=== PATIENT | female | born 1990 | race African-American/Black ===

== ENCOUNTER 2019-12-11 21:45 | Emergency (ER) | payer SELFPAY ==
[2019-12-11 21:51] VITALS: BP 123/79; PULSE 90; TEMP 98.5; BMI 22.6
[2019-12-11] MEDS ORDERED: SODIUM CHLORIDE 1,000 ML IV STA (23:54)
--- NOTE | 2019-12-12 00:01 | PDOC ---
History of Present Illness - General Chief Complaint: Vaginal Bleeding Stated Complaint: ABD PAIN Time Seen by Provider: 12/11/19 23:42 History Source: Patient Exam Limitations: No Limitations - History of Present Illness Initial Comments: 12/11/19 23:56 Patient is a 29-year-old female who presents to the ED with complaint of right lower abdominal pain, vaginal bleeding and a positive test. The patient states she has had vaginal spotting for the last 7 days. She took a test last night and it was positive. She states the spotting is dark brown and different from her normal period. She is not saturating any pads. She has had lower abdominal cramping primarily on the right side as well. She states her LMP was November 07, 2019. She is with 1 previous elective termination. She has a history of HSV-2 and states she noticed a lesion in her vagina a few days ago and started taking the pills that she was previously prescribed. Past History - Past Medical History Allergies/Adverse Reactions: Allergies Allergy/AdvReac Type Severity Reaction Status Date / Time No Known Allergies Allergy Verified 12/11/19 21:48 Home Medications: Ambulatory Orders No Home Medications 0 dose .ROUTE UTDICT 09/16/12 - Psycho Social/Smoking Cessation Hx Smoking Status: No Smoking History: Never smoked Number of Cigarettes Smoked Daily: 0 Review of Systems - Review of Systems Comments:: 12/11/19 23:57 - Review of Systems Able to Perform ROS?: Yes Constitutional: No: Fever, Chills, Loss of Appetite, Night Sweats, Weakness HEENTM: No: Eye Pain, Vision changes, Ear Pain, Throat Pain, Throat Swelling, Mouth Pain, Difficulty Swallowing Respiratory: No: Cough, Shortness of Breath, Wheezing, Sputum Production Cardiac (ROS): No: Chest Pain, Chest Tightness, Palpitations, Irregular Heart Beat, Edema ABD/GI: No: Nausea, Vomiting, Abdominal Pain, Diarrhea; + lower abdominal cramping : No Dysuria, No Hematuria, No Frequency, No Urgency, + vaginal spotting, recent + test, + vaginal lesion Musculoskeletal: No: Muscle Pain, Back Pain, Joint Pain, Muscle Weakness, Neck Pain Integumentary: No: Lesions, Rash Neurological: No: Headache, Numbness, Tingling, Weakness, Speech Difficulties *Physical Exam - Vital Signs Last Vital Signs Temp Pulse Resp BP Pulse Ox 98.5 F 90 16 123/79 100 12/11/19 21:49 12/11/19 21:49 12/11/19 21:49 12/11/19 21:49 12/11/19 21:49 - Physical Exam 12/11/19 23:58 - Physical Exam General Appearance: Nourished, Appropriately Dressed, No Distress Neck: Supple, No Lymphadenopathy (R), No Lymphadenopathy (L), No Rigidity, No Decreased range of motion Respiratory/Chest: Lungs Clear, Normal Breath Sounds. No Respiratory Distress, No Accessory Muscle Use Cardiovascular: Regular Rhythm, Regular Rate, S1, S2 Gastrointestinal/Abdominal: Normal Bowel Sounds, Soft. Non-tender, No Guarding , No Rebound, No Rigidity CARBURETOR EXPERT exam: scant dark brown vaginal discharge in the vault, os closed, no CMT, + diffuse tenderness on bimanual exam, No masses appreciated, small ulcerated lesion in the distal aspect of the labia major with some tenderness to palpation , no vesicle appreciated. This lesion is consistent with HSV 2 Musculoskeletal: Normal Inspection. No Decreased Range of Motion Extremity: Normal Capillary Refill, Normal Inspection Integumentary: Normal Color, Dry. No Rash Neurologic: process automation engineer II-XII NML intact, Fully Oriented, Alert, Normal Mood/Affect, Normal Response ED Treatment Course - LABORATORY CBC & Chemistry Diagram: 12/12/19 00:00 12/12/19 00:00 - ADDITIONAL ORDERS Additional order review: 12/12/19 01:48 Laboratory Tests 12/12/19 12/12/19 12/12/19 00:00 00:00 00:00 Beta HCG, Quant 127.0 Urine Color Yellow Urine Appearance Clear Urine pH 5.0 Ur Specific [place] 1.028 Urine Protein Negative Urine Glucose (UA) Negative Urine Ketones Trace H Urine Blood Negative Urine Nitrite Negative Urine Bilirubin Negative Urine Urobilinogen 0.2 Ur Leukocyte Esterase Negative Urine HCG, Qual Positive - RADIOLOGY Radiology Studies Ordered: Category Date Time Status TRANSVAGINAL US PREG [US] Stat Ultrasound 12/11/19 23:55 Ordered Medical Decision Making - Medical Decision Making 12/12/19 00:01 Patient is a 29-year-old female with vaginal bleeding and a positive exam at home. -Will send labs for further evaluation -TVUS -IV -Fluids -Reassess 12/12/19 01:48 Patient's ultrasound is read as a small questionable gestational sac with no adnexal masses appreciated. The patient's beta hCG is only 127. Secondary to a low hCG and questionable gestational sac we have suggested that the patient return to the ED in 2 days for a repeat beta-hCG only. She states she will try to follow-up with her TOMATO GRADER within those 2 days as opposed to coming to the ED. She does have an initial obstetrics evaluation with Dr. Johnnie Kuo of [facility] in mid-January. She states that was the earliest appointment available. The patient understands and states that if she is unable to follow- up with Dr. Kuo will return to the ED for the blood work. Discharge - Discharge Information Problems reviewed: Yes Clinical Impression/Diagnosis: Vaginal bleeding in patient after first trimester Condition: Stable - Follow up/Referral - Patient Discharge Instructions Patient Printed Discharge Instructions: DI for Vaginal Bleeding During Additional Instructions: Follow-up with your test bore helper within 2 days for repeat evaluation. We do suggest that you return to the emergency department in 2 days to have a repeat quantitative beta-hCG. Trending your hCG will help us determine whether or not the is growing appropriately. You should return to the ED on Monday or Tuesday 12/19 for a repeat blood work. You should call your test bore helper and see if you can get seen prior to . Return to the emergency department for heavy vaginal bleeding, worsening abdominal pain, profuse vomiting or any other worsening symptoms. - Post Discharge Activity Work/Back to School Note: Back to Work
[2019-12-12 00:41] LABS: URINE APPEARANCE CLEAR; URINE BILIRUBIN NEGATIVE (NEGATIVE); URINE COLOR YELLOW; URINE GLUCOSE (UA) NEGATIVE (NEGATIVE); URINE KETONE TRACE (NEGATIVE); URINE LEUK ESTERASE NEGATIVE (NEGATIVE); URINE NITRITE NEGATIVE (NEGATIVE); URINE PROTEIN NEGATIVE (NEGATIVE); URINE UROBILINOGEN 0.2 mg/dL (0.2-1.0)
[2019-12-12 00:45] LABS: BASO % 0.8 % (0-2.0); EOS % 1.1 % (0-4.5); HEMATOCRIT 34.8 % (32.4-45.2); HEMOGLOBIN 11.1 GM/dL (10.7-15.3); MCH 27.8 pg (25.7-33.7); MEAN PLT VOLUME 9.1 fl (7.5-11.1); MONO % 7.4 % (3.8-10.2); NEUT % 55.7 % (42.8-82.8); PLATELET COUNT 219 K/MM3 (134-434); RDW 15.9 % (11.6-15.6); WHITE BLOOD COUNT 7.6 K/mm3 (4.0-10.0)
[2019-12-12 01:06] LABS: ALBUMIN 3.9 g/dl (3.4-5.0); BILIRUBIN,TOTAL 0.4 mg/dL (0.2-1); CREATININE 0.8 mg/dL (0.55-1.3); POTASSIUM 3.7 mmol/L (3.5-5.1); TOT PROT 7.6 g/dl (6.4-8.2)
== END 2019-12-12 01:58 | disposition home or self-care (01) ==
LOC: JER 21:45
PROC: 3E0337Z Introduction of Electrolytic and Water Balance Substance into Peripheral Vein, Percutaneous Approach (ICD-10-PCS; principal; 2019-12-11)
DX: O26.891 Other specified pregnancy related conditions, first trimester (principal); O20.8 Other hemorrhage in early pregnancy; O98.311 Other infections with a predominantly sexual mode of transmission complicating pregnancy, first trimester; A60.04 Herpesviral vulvovaginitis; Z3A.00 Weeks of gestation of pregnancy not specified
CPT/HCPCS: 36415; 76817-TC; 80053; 81003; 84702; 84703; 85025; 86850; 86900; 86901; 87086; 99282-25

== ENCOUNTER 2019-12-14 22:06 | Emergency (ER) | payer OTHER ==
[2019-12-14 22:12] VITALS: BP 156/66; PULSE 85; TEMP 98.3; BMI 22.6
--- NOTE | 2019-12-14 23:28 | PDOC ---
History of Present Illness - General Chief Complaint: Revisit, Lab Variance Stated Complaint: LABS VARIANCE Time Seen by Provider: 12/14/19 22:16 History Source: Patient Exam Limitations: No Limitations Past History - Past Medical History Allergies/Adverse Reactions: Allergies Allergy/AdvReac Type Severity Reaction Status Date / Time No Known Allergies Allergy Verified 12/11/19 21:48 Home Medications: Ambulatory Orders No Home Medications 0 dose .ROUTE UTDICT 09/16/12 COPD: No - Reproductive History (#): 1 Para: 0 Spontaneous : 0 - Psycho Social/Smoking Cessation Hx Smoking Status: No Smoking History: Never smoked Number of Cigarettes Smoked Daily: 0 *Physical Exam - Vital Signs Last Vital Signs Temp Pulse Resp BP Pulse Ox 98.3 F 85 19 156/66 100 12/14/19 22:08 12/14/19 22:08 12/14/19 22:08 12/14/19 22:08 12/14/19 22:08 - Physical Exam General Appearance: No: Apparent Distress Respiratory/Chest: positive: Lungs Clear, Normal Breath Sounds. negative: Respiratory Distress Cardiovascular: positive: Regular Rhythm, Regular Rate, S1, S2. negative: Murmur Gastrointestinal/Abdominal: positive: Normal Bowel Sounds, Soft. negative: Tender, Distended, Guarding, Rebound Integumentary: positive: Normal Color Neurologic: positive: Alert ED Treatment Course - ADDITIONAL ORDERS Additional order review: Laboratory Results 12/14/19 22:30 Beta HCG, Quant 218.7 Medical Decision Making - Medical Decision Making 29 y/o F with hx of genital herpes, , currently , LNMP 11/07, presents for repeat bhcg. Was seen 2 days ago and found to have bhcg of 127. Patient denies having any more abdominal pain. Still with light vaginal spotting. Denies fever, URI sxs, other complaints TVUS 2 days ago inconclusive for IUP Laboratory Results - last 24 hr 12/14/19 22:30 Beta HCG, Quant 218.7 Bhcg currently 218.7 Levels are rising D/W Dr. Robles - unlikely to see IUP at such a low Bhcg; patient without any abdominal pain; not a high suspicion for ectopic Patient has CHUTE MAN with whom she can follow-up stable for dc 12/14/19 23:23 Discharge - Discharge Information Problems reviewed: Yes Clinical Impression/Diagnosis: Early stage of Condition: Stable Disposition: HOME - Admission No - Additional Discharge Information Prescription Drug Monitoring Program (I-STOP) results: I-STOP not reviewed - Follow up/Referral - Patient Discharge Instructions Patient Printed Discharge Instructions: DI for Abdominal Pain -- Early Additional Instructions: Thank you for choosing [facility]. It was a pleasure taking care of you. Follow-up with your CHUTE MAN for continued monitoring of your Return to the Emergency Department if your symptoms worsen or persist, you have severe abdominal pain, heavy bleeding or other concerning symptoms. - Post Discharge Activity
== END 2019-12-14 23:50 | disposition home or self-care (01) ==
LOC: JER 22:06
DX: O26.891 Other specified pregnancy related conditions, first trimester (principal); Z32.01 Encounter for pregnancy test, result positive; Z3A.01 Less than 8 weeks gestation of pregnancy
CPT/HCPCS: 36415; 84702; 99281-25

== ENCOUNTER 2019-12-21 23:16 | Emergency (ER) | payer OTHER ==
[2019-12-21 23:52] VITALS: BP 116/63; TEMP 97.9; BMI 22.6
--- NOTE | 2019-12-22 | PDOC ---
History of Present Illness - General Chief Complaint: Vaginal Bleeding Stated Complaint: VAGINAL BLEEDING/4WKS PREG. Time Seen by Provider: 12/22/19 00:00 History Source: Patient Past History - Past Medical History Allergies/Adverse Reactions: Allergies Allergy/AdvReac Type Severity Reaction Status Date / Time No Known Allergies Allergy Verified 12/21/19 23:39 Home Medications: Ambulatory Orders No Home Medications 0 dose .ROUTE UTDICT 09/16/12 COPD: No - Reproductive History (#): 1 Para: 0 Spontaneous : 0 - Psycho Social/Smoking Cessation Hx Smoking Status: No Smoking History: Never smoked Have you smoked in the past 12 months: No Number of Cigarettes Smoked Daily: 0 Information on smoking cessation initiated: No Hx Alcohol Use: No Drug/Substance Use Hx: No *Physical Exam - Vital Signs Last Vital Signs Temp Pulse Resp BP Pulse Ox 97.9 F 94 H 20 116/63 100 12/21/19 23:39 12/21/19 23:39 12/21/19 23:39 12/21/19 23:39 12/21/19 23:39
--- NOTE | 2019-12-22 00:54 | PDOC ---
Documentation entered by Denise Rodriguez SCRIBE, acting as scribe for Caitie Del Toro MD. Caitie Del Toro MD: This documentation has been prepared by the Jennifer mendez Adrianna, SCRIBE, under my direction and personally reviewed by me in its entirety. I confirm that the documentation accurately reflects all work, treatment, procedures, and medical decision making performed by me. Attending Attestation - Resident Resident Name: Jose Dias - ED Attending Attestation I have performed the following: I have examined & evaluated the patient, The case was reviewed & discussed with the resident, I agree w/resident's findings & plan, Exceptions are as noted - HPI HPI: The patient is a 29 year old female, with a significant PMH of genital herpes, who presents to the ED for evaluation of vaginal bleeding. Patient reports passing large clots today. She endorses associated suprapubic cramping. Patient was seen at [facility] recently for vaginal spotting, and her TVUS 8 days ago was inconclusive for IUP. Allergies: NKA, NKDA Surgical History: None reported Social History: Denies EtOH, tobacco, or illicit drug use - Physicial Exam PE: GENERAL: Awake, alert, and fully oriented, in no acute distress HEAD: No signs of trauma EYES: PERRLA, EOMI, sclera anicteric, conjunctiva clear ENT: Auricles normal inspection, hearing grossly normal, nares patent, oropharynx clear without exudates. Moist mucosa NECK: Normal ROM, supple, no lymphadenopathy, JVD, or masses LUNGS: Breath sounds equal, clear to auscultation bilaterally. No wheezes, and no crackles HEART: Regular rate and rhythm, normal S1 and S2, no murmurs, rubs or gallops ABDOMEN: Soft, +mild suprapubic tenderness, normoactive bowel sounds. No guarding, no rebound. No masses EXTREMITIES: Normal range of motion, no edema. No clubbing or cyanosis. No cords, erythema, or tenderness NEUROLOGICAL: Cranial nerves II through XII grossly intact. Normal speech, normal gait. Motor and sensation intact SKIN: Warm, dry, normal turgor, no rashes or lesions noted. - Medical Decision Making 12/22/19 00:53 Pt with recent vaginal spotting, inconclusive ultrasound, now presenting with passage of clots and what appeared to be tissue, as well as suprapubic cramping pain. Will check B-HCG and sono.
[2019-12-22 01:06] LABS: BASO % 1.5 % (0-2.0); EOS % 1.8 % (0-4.5); HEMATOCRIT 35.3 % (32.4-45.2); HEMOGLOBIN 11.3 GM/dL (10.7-15.3); LYMPH % 39.6 % (8-40); MCH 27.9 pg (25.7-33.7); MEAN CELL VOLUME 87.1 fl (80-96); MEAN PLT VOLUME 10.7 fl (7.5-11.1); MONO % 9.3 % (3.8-10.2); NEUT % 47.8 % (42.8-82.8); PLATELET COUNT 264 K/MM3 (134-434); RBC 4.05 M/mm3 (3.60-5.2); RDW 16.2 % (11.6-15.6); WHITE BLOOD COUNT 7.2 K/mm3 (4.0-10.0)
--- NOTE | 2019-12-22 01:50 | PDOC ---
History of Present Illness - General Chief Complaint: Vaginal Bleeding Stated Complaint: VAGINAL BLEEDING/4WKS PREG. Time Seen by Provider: 12/22/19 00:00 - History of Present Illness Initial Comments: 12/22/19 01:59 29 y/o F presents today with 2wks of vaginal bleeding. She was seen on this facility on 2 seperate occasions. ultrasound at that time showed questionable IUP. Since last visit on 12/14/2019, she has had increased vaginal bleeding and has soaked through 2 pads today. She is back because of increased bleeding as well as passing a large clot today. She denies any fevers, chill, nausea, vomiting. She endorsed some abdominal pain earlier but none at this time. Past History - Past Medical History Allergies/Adverse Reactions: Allergies Allergy/AdvReac Type Severity Reaction Status Date / Time No Known Allergies Allergy Verified 12/21/19 23:39 Home Medications: Ambulatory Orders No Home Medications 0 dose .ROUTE UTDICT 09/16/12 COPD: No - Reproductive History Is Patient Now?: Yes (#): 1 Para: 0 Spontaneous : 0 - Psycho Social/Smoking Cessation Hx Smoking Status: No Smoking History: Never smoked Have you smoked in the past 12 months: No Number of Cigarettes Smoked Daily: 0 Information on smoking cessation initiated: No Hx Alcohol Use: No Drug/Substance Use Hx: No *Physical Exam - Vital Signs Last Vital Signs Temp Pulse Resp BP Pulse Ox 97.9 F 94 H 20 116/63 100 12/21/19 23:39 12/21/19 23:39 12/21/19 23:39 12/21/19 23:39 12/21/19 23:39 - Physical Exam 12/22/19 01:48 GENERAL: Awake, alert, and fully oriented, in no acute distress HEAD: No signs of trauma, normocephalic, atraumatic EYES: PERRLA, EOMI, sclera anicteric, conjunctiva clear ENT: Auricles normal inspection, hearing grossly normal, nares patent, oropharynx clear without exudates. Moist mucosa NECK: Normal ROM, supple, no lymphadenopathy, JVD, or masses LUNGS: No distress, speaks full sentences, clear to auscultation bilaterally HEART: Regular rate and rhythm, normal S1 and S2, no murmurs, rubs or gallops, peripheral pulses normal and equal bilaterally. ABDOMEN: Soft, nontender, normoactive bowel sounds. No guarding, no rebound. No masses : moderate amount of blood in vaginal vault. cervical os closed. no CMT. right adnexal tenderness EXTREMITIES : Normal inspection, Normal range of motion, no edema. No clubbing or cyanosis NEUROLOGICAL: Cranial nerves II through XII grossly intact. Normal speech, normal gait, no focal sensorimotor deficits SKIN: Warm, Dry, normal turgor, no rashes or lesions noted ED Treatment Course - LABORATORY CBC & Chemistry Diagram: 12/22/19 00:43 12/22/19 00:43 - ADDITIONAL ORDERS Additional order review: Laboratory Results 12/22/19 12/22/19 00:43 00:43 Beta HCG, Quant 147.6 Blood Type Cancelled Antibody Screen Cancelled 12/22/19 00:43 RBC 4.05 MCV 87.1 MCHC 32.0 RDW 16.2 H MPV 10.7 D Neutrophils % 47.8 Lymphocytes % 39.6 Monocytes % 9.3 Eosinophils % 1.8 Basophils % 1.5 - RADIOLOGY Radiology Studies Ordered: Category Date Time Status TRANSVAGINAL ULTRASOUND US [US] Stat Ultrasound 12/22/19 00:59 Ordered Medical Decision Making - Medical Decision Making 12/22/19 01:47 29 y/o F presents today with 2wks of vaginal bleeding. She was seen on this facility on 2 separate occasions. b-hcg 147.6 down from 218 on previous read miscarriage likely pending official u/s read read per attending shows no IUP, hcg has also decreased. pt has miscarried 12/22/19 02:03 12/25/19 21:51 Discharge - Discharge Information Problems reviewed: Yes Clinical Impression/Diagnosis: Miscarriage Condition: Stable Disposition: HOME - Follow up/Referral - Patient Discharge Instructions Patient Printed Discharge Instructions: DI for Miscarriage Additional Instructions: You were seen in the ER for vaginal bleeding your ultrasound did not show a . This indicates that you have miscarried The bleeding should eventually subside. If not, return to the ER If you experience cramps or abdominal pain, take ibuprofen keep your appointment with your marketing operations analyst at [facility] for January. RETURN TO THE ER if you experience fevers, chills or purulent vaginal discharge. - Post Discharge Activity
[2019-12-22 03:00] VITALS: PULSE 88
== END 2019-12-22 03:02 | disposition home or self-care (01) ==
LOC: JER 23:16
DX: O26.891 Other specified pregnancy related conditions, first trimester (principal); O03.9 Complete or unspecified spontaneous abortion without complication; Z3A.01 Less than 8 weeks gestation of pregnancy
CPT/HCPCS: 36415; 76830-TC; 84702; 85025; 99284-25

== ENCOUNTER 2022-05-10 18:05 | Emergency (ER) | payer OTHER ==
[2022-05-10] MEDS ORDERED: KETOROLAC TROMETHAMINE 30 MG/1 ML VIAL IM ONE (18:29)
[2022-05-10] MEDS ORDERED: LIDOCAINE 5% TOPICAL PATCH TP ONE (18:30)
[2022-05-10] MEDS ORDERED: LIDOCAINE 5% TOPICAL PATCH ONE (18:33)
[2022-05-10] MEDS ORDERED: KETOROLAC TROMETHAMINE 30 MG/1 ML VIAL ONE (18:33)
[2022-05-10 18:37] VITALS: BP 133/88; PULSE 75; TEMP 98; BMI 25.5
[2022-05-10] MEDS ORDERED: LIDOCAINE PATCH REMOVAL MC SCH (22:00)
== END 2022-05-10 19:19 | disposition home or self-care (01) ==
LOC: FER 18:05
PROC: 3E0233Z Introduction of Anti-inflammatory into Muscle, Percutaneous Approach (ICD-10-PCS; principal; 2022-05-10)
DX: M25.511 Pain in right shoulder (principal)
CPT/HCPCS: 71046-TC-FY; 73030-TC-RT-FY; 93005; 99285-25

== ENCOUNTER 2023-02-27 09:56 | Emergency (ER) | payer OTHER ==
[2023-02-27] MEDS ORDERED: IBUPROFEN 600 MG TABLET (FP) PO ONE ×2 (10:04→10:11)
[2023-02-27 10:07] VITALS: BP 134/93; PULSE 95; RESP 18; TEMP 98.4; BMI 22.0
== END 2023-02-27 11:09 | disposition home or self-care (01) ==
LOC: FER 09:56
DX: S93.402A Sprain of unspecified ligament of left ankle, initial encounter (principal); X50.1XXA Overexertion from prolonged static or awkward postures, initial encounter
CPT/HCPCS: 73610-TC-LT-FY; 99283-25

== ENCOUNTER 2023-05-04 12:00 | Emergency (ER) | payer OTHER ==
[2023-05-04 12:05] VITALS: BP 138/98; PULSE 89; RESP 18; TEMP 97.8; BMI 26.3
== END 2023-05-04 13:05 | disposition home or self-care (01) ==
LOC: FER 12:00
DX: M54.2 Cervicalgia (principal); M25.511 Pain in right shoulder; M25.512 Pain in left shoulder; S16.1XXA Strain of muscle, fascia and tendon at neck level, initial encounter; X50.9XXA Other and unspecified overexertion or strenuous movements or postures, initial encounter
CPT/HCPCS: 99283-25

== ENCOUNTER 2025-06-11 12:21 | Emergency (ER) | payer OTHER ==
[2025-06-11 12:28] VITALS: BP 138/82; PULSE 76; RESP 18; TEMP 98.2; BMI 22.0
[2025-06-11] MEDS ORDERED: ACETAMINOPHEN 325 MG TABLET (FP) ONE (13:19)
[2025-06-11] MEDS: ACETAMINOPHEN 325 MG TABLET (FP) PO ONE (13:20)
[2025-06-11 13:32] LABS: INR 1.14 (0.83-1.09); PROTHROMBIN TIME (PATIENT) 12.6 SEC (9.7-13.0)
[2025-06-11 13:35] LABS: ABSOLUTE IMMATURE GRANULOCYTES 0.01 x10^3/uL (0.0-0.031); BASOPHILS # 0.03 x10^3/uL (0.01-0.08); EOSINOPHIL % 0.9 % (0.7-5.8); EOSINOPHILS # 0.06 x10^3/uL (0.04-0.36); MCHC 31.6 g/dl (32.2-35.5); MEAN CELL VOLUME 83.2 fl (79.4-94.8); MEAN PLT VOLUME 10.6 fl (9.4-12.3); MONOCYTE # 0.56 x10^3/uL (0.24-0.86); MONOCYTE % 8.5 % (4.7-12.5); RDW 16.5 % (12.1-16.8)
[2025-06-11 13:35] LABS: ACTIVATED PTT 29.1 SECONDS (25.2-36.5)
[2025-06-11 13:44] LABS: ALK PHOS 52.0 U/L (45-117); CO2 24.0 mmol/L (21-32); CREATININE 0.8 mg/dl (0.6-1.3); GLUCOSE,RANDOM 97.0 mg/dl (74-106); SGOT/AST 12.0 U/L (15-37); SGPT/ALT 9.0 U/L (7-52); TOT PROT 7.5 g/dl (6.4-8.2)
[2025-06-11 14:06] LABS: EPITHELIAL CELLS 0-5 /hpf
== END 2025-06-11 15:17 | disposition home or self-care (01) ==
LOC: FER 12:21
DX: O20.0 Threatened abortion (principal); O26.891 Other specified pregnancy related conditions, first trimester; R10.30 Lower abdominal pain, unspecified; Z3A.01 Less than 8 weeks gestation of pregnancy
CPT/HCPCS: 36415; 76817-TC; 80053; 81003; 81015; 81025; 84702; 84703; 85025; 85610; 85730; 87086; 99284-25